=== PATIENT | male | born 1980 ===

== ENCOUNTER 2024-04-23 21:18 | Emergency (ER) | payer OTHER ==
[~2024-04-23] VITALS: Ht 185.4 cm; Wt 100.0 kg
[2024-04-23 21:33] VITALS: BP 154/87; PULSE 95; RESP 15; TEMP 99.9; O2SAT 100
[2024-04-23 21:52] LABS: COVID AG,FIA SOURCE NASAL SWAB
[2024-04-23 22:15] LABS: SARS-COV2 (COVID) ANTIGEN,FIA Negative (Negative)
[2024-04-23 22:17] LABS: INFLUENZA TYPE A NEGATIVE FOR TYPE A (NEGATIVE); INFLUENZA TYPE B NEGATIVE FOR TYPE B (NEGATIVE)
[2024-04-24] MEDS ORDERED: BENZ-227 PO (00:04)
== END 2024-04-24 00:20 | disposition home or self-care (01) ==
LOC: EMS 21:18
DX: J06.9 Acute upper respiratory infection, unspecified (principal); B97.89 Other viral agents as the cause of diseases classified elsewhere; Z20.822 Contact with and (suspected) exposure to COVID-19
CPT/HCPCS: 87804; 99283